=== PATIENT | female | born 1965 | race Caucasian/White ===

== ENCOUNTER 2019-05-04 17:11 | Emergency (ER) | payer BC ==
[~2019-05-04] VITALS: Ht 162.6 cm; Wt 88.2 kg
[2019-05-04] MEDS ORDERED: VENLAFAXINE H37.5 M1 PO (17:58)
[2019-05-04] MEDS ORDERED: LEVOTHYROXIN100 MC1 PO (17:58)
[2019-05-04 18:45] VITALS: BP 161/88
== END 2019-05-04 18:45 | disposition home or self-care (01) | DRG 566 ==
LOC: ED 17:11
PROC: 2W3EX1Z Immobilization of Right Hand using Splint (ICD-10-PCS; principal; 2019-05-04)
DX: M89.8X4 Other specified disorders of bone, hand (principal); E03.9 Hypothyroidism, unspecified; W01.0XXA Fall on same level from slipping, tripping and stumbling without subsequent striking against object, initial encounter; Y93.89 Activity, other specified; Y92.009 Unspecified place in unspecified non-institutional (private) residence as the place of occurrence of the external cause